=== PATIENT | female | born 1985 | race Caucasian/White ===

== ENCOUNTER 2021-08-02 14:39 | Observation (INO) | payer BC ==
[2021-08-02] MEDS ORDERED: SODIUM CHLORIDE 0.9% 1,000 ML IV STA (15:21)
[2021-08-02] MEDS ORDERED: MORPHINE SULFATE 4 MG/ML SYRINGE IV STA ×2 (15:21→17:53)
[2021-08-02 15:24] LABS: Appearance,Urine Cloudy (Clear); Bilirubin,Urine Negative (Negative); Blood,Urine Negative (Negative); Color,Urine Yellow; Glucose,Urine (UA) Negative (Negative); Ketones,Urine Negative (Negative); Leukocyte Esterase,Urine Large (Negative); Mucus,Urine Rare /hpf; Nitrite,Urine Negative (Negative); PH, Urine 7.5 (5.0-8.0); Protein,Urine Negative (Negative); RBC,Urine <1 /hpf (0-5); Specific Gravity,Urine 1.014 (1.001-1.035); Squamous Epithelial Cell,Urine 7 /hpf (0-4); Urobilinogen,Urine <2.0 mg/dL (<2.0); WBC,Urine 4 /hpf (0-5)
--- NOTE | 2021-08-02 15:27 | ED ---
General Adult HPI - General Chief complaint: Abdominal Pain Stated complaint: Abd pain Time Seen by Provider: 08/02/21 15:08 Source: patient Mode of arrival: ambulatory Limitations: no limitations - History of Present Illness Initial comments: Dictation was produced using Scali dictation software. please excuse any grammatical, word or spelling errors. Chief Complaint: 36 year old female presents with 2 hours of abdominal pain History of Present Illness: Patient 36-year-old female she has no past medical history. She has history of . At 1:30 patient began having severe constant right upper quadrant abdominal pain. Patient denies any vomiting. She feels slightly nauseated. When 2 hours prior the onset of pain patient states that she had's with hot sauce. Patient states she woke up feeling well. No diarrhea. Denies any constitutional symptoms. Patient is diagnosed with gallstones in the past. The ROS documented in this emergency department record has been reviewed and confirmed by me. Those systems with pertinent positive or negative responses have been documented in the HPI. All other systems are other negative and/or noncontributory. PHYSICAL EXAM: General Impression: Alert and oriented x3, not in acute distress HEENT: Normocephalic atraumatic, extra-ocular movements intact, pupils equal and reactive to light bilaterally, mucous membranes moist. Cardiovascular: Heart regular rate and rhythm Chest: Able to complete full sentences, no retractions, no tachypnea Abdomen: abdomen soft, palpatory tenderness in the epigastric and right upper quadrant area, negative Call sign, non-distended, no organomegaly Musculoskeletal: Pulses present and equal in all extremities, no peripheral edema Motor: no focal deficits noted Neurological: CN II-XII grossly intact, no focal motor or sensory deficits noted Skin: Intact with no visualized rashes Psych: Normal affect and mood ED course: 36-year-old female presents to the emergency department for right upper quadrant abdominal pain. Vital Signs upon arrival are within acceptable limits. Mild leukocytosis of 14.7, there is slight microcytosis, platelets of 490. Metabolic panel shows bicarb of 18 with a gap of 14. Glucose is 63. AST is 184. Alk phos is negative. Lipase is normal. Urinalysis negative. Patient is not . Ultrasound of the right upper quadrant shows no findings to suggest acute cholecystitis. Normal gallbladder wall with no pericholecystic fluid. Patient had a positive sonographic Call sign. There is gallbladder full of gallstones. Patient reevaluated to bedside at 6:35 PM she still in significant pain. She continues to deny any constitutional symptoms. Disposition options were discussed. At this point there is some concern for acute infected gallbladder given that she does have elevated acute phase reactants, mild leukocytosis, hyperglycemia and severe persistent right upper quadrant abdominal pain. Case discussed with Dr. Duke who is willing to accept patients care. Patient started on antibiotics. Patient will be admitted. Dr. Duke anticipates laparoscopic cholecystectomy tomorrow. - Related Data Home Medications Medication Instructions Recorded Confirmed Levothyroxine Sodium [Synthroid] 150 mcg PO DAILY 08/02/21 08/02/21 Sertraline [Zoloft] 100 mg PO HS 08/02/21 08/02/21 Allergies Allergy/AdvReac Type Severity Reaction Status Date / Time No Known Allergies Allergy Verified 08/02/21 16:48 Review of Systems ROS Statement: Those systems with pertinent positive or pertinent negative responses have been documented in the HPI. ROS Other: All systems not noted in ROS Statement are negative. Past Medical History Past Medical History: No Reported History History of Any Multi-Drug Resistant Organisms: None Reported Past Surgical History: Section Past Psychological History: No Psychological Hx Reported Smoking Status: Never smoker Past Alcohol Use History: None Reported Past Drug Use History: None Reported General Exam Limitations: no limitations Course Vital Signs 08/02/21 08/02/21 14:42 17:36 Temperature 97.8 F 98.7 F Pulse Rate 95 86 Respiratory 18 18 Rate Blood Pressure 130/82 116/82 O2 Sat by Pulse 100 100 Oximetry Medical Decision Making - Lab Data Result diagrams: 08/02/21 16:36 08/02/21 16:36 Lab Results 08/02/21 08/02/21 08/02/21 Range/Units 14:50 14:52 16:36 WBC 14.7 H (3.8-10.6) k/uL RBC 4.94 (3.80-5.40) m/uL Hgb 11.7 (11.4-16.0) gm/dL Hct 37.4 (34.0-46.0) % MCV 75.7 L (80.0-100.0) fL MCH 23.6 L (25.0-35.0) pg MCHC 31.2 (31.0-37.0) g/dL RDW 14.3 (11.5-15.5) % Plt Count 490 H (150-450) k/uL MPV 11.0 Neutrophils % 86 % Lymphocytes % 7 % Monocytes % 5 % Eosinophils % 1 % Basophils % 0 % Neutrophils # 12.7 H (1.3-7.7) k/uL Lymphocytes # 1.0 (1.0-4.8) k/uL Monocytes # 0.7 (0-1.0) k/uL Eosinophils # 0.1 (0-0.7) k/uL Basophils # 0.0 (0-0.2) k/uL Hypochromasia Marked Microcytosis Slight Sodium (137-145) mmol/L Potassium (3.5-5.1) mmol/L Chloride (98-107) mmol/L Carbon Dioxide (22-30) mmol/L Anion Gap mmol/L BUN (7-17) mg/dL Creatinine (0.52-1.04) mg/dL Est GFR (CKD-EPI)AfAm (>60 ml/min/1.73 sqM) Est GFR (CKD-EPI)NonAf (>60 ml/min/1.73 sqM) Glucose (74-99) mg/dL POC Glucose (mg/dL) (75-99) mg/dL POC Glu [place]er ID Calcium (8.4-10.2) mg/dL Total Bilirubin (0.2-1.3) mg/dL Conjugated Bilirubin (0.0-0.3) mg/dL Unconjugated Bilirubin (0.0-1.1) mg/dL Delta Bilirubin (0.0-0.2) mg/dL AST (14-36) U/L ALT (4-34) U/L Alkaline Phosphatase (38-126) U/L Total Protein (6.3-8.2) g/dL Albumin (3.5-5.0) g/dL Lipase (23-300) U/L HCG, Quant mIU/mL Urine Color Yellow Urine Appearance Cloudy H (Clear) Urine pH 7.5 (5.0-8.0) Ur Specific [place] 1.014 (1.001-1.035) Urine Protein Negative (Negative) Urine Glucose (UA) Negative (Negative) Urine Ketones Negative (Negative) Urine Blood Negative (Negative) Urine Nitrite Negative (Negative) Urine Bilirubin Negative (Negative) Urine Urobilinogen <2.0 (<2.0) mg/dL Ur Leukocyte Esterase Large H (Negative) Urine RBC <1 (0-5) /hpf Urine WBC 4 (0-5) /hpf Ur Squamous Epith Cells 7 H (0-4) /hpf Urine Mucus Rare H (None) /hpf Urine HCG, Qual Not Detected (Not Detectd) 08/02/21 08/02/21 Range/Units 16:36 18:30 WBC (3.8-10.6) k/uL RBC (3.80-5.40) m/uL Hgb (11.4-16.0) gm/dL Hct (34.0-46.0) % MCV (80.0-100.0) fL MCH (25.0-35.0) pg MCHC (31.0-37.0) g/dL RDW (11.5-15.5) % Plt Count (150-450) k/uL MPV Neutrophils % % Lymphocytes % % Monocytes % % Eosinophils % % Basophils % % Neutrophils # (1.3-7.7) k/uL Lymphocytes # (1.0-4.8) k/uL Monocytes # (0-1.0) k/uL Eosinophils # (0-0.7) k/uL Basophils # (0-0.2) k/uL Hypochromasia Microcytosis Sodium 140 (137-145) mmol/L Potassium 4.8 (3.5-5.1) mmol/L Chloride 108 H (98-107) mmol/L Carbon Dioxide 18 L (22-30) mmol/L Anion Gap 14 mmol/L BUN 9 (7-17) mg/dL Creatinine 0.60 (0.52-1.04) mg/dL Est GFR (CKD-EPI)AfAm >90 (>60 ml/min/1.73 sqM) Est GFR (CKD-EPI)NonAf >90 (>60 ml/min/1.73 sqM) Glucose 63 L (74-99) mg/dL POC Glucose (mg/dL) 141 H (75-99) mg/dL POC Glu [place] ID Sj Dean Calcium 9.1 (8.4-10.2) mg/dL Total Bilirubin 0.8 (0.2-1.3) mg/dL Conjugated Bilirubin 0.0 (0.0-0.3) mg/dL Unconjugated Bilirubin 0.3 (0.0-1.1) mg/dL Delta Bilirubin 0.5 H (0.0-0.2) mg/dL AST 184 H (14-36) U/L ALT 31 (4-34) U/L Alkaline Phosphatase 117 (38-126) U/L Total Protein 8.8 H (6.3-8.2) g/dL Albumin 4.8 (3.5-5.0) g/dL Lipase 111 (23-300) U/L HCG, Quant <2.4 mIU/mL Urine Color Urine Appearance (Clear) Urine pH (5.0-8.0) Ur Specific [place] (1.001-1.035) Urine Protein (Negative) Urine Glucose (UA) (Negative) Urine Ketones (Negative) Urine Blood (Negative) Urine Nitrite (Negative) Urine Bilirubin (Negative) Urine Urobilinogen (<2.0) mg/dL Ur Leukocyte Esterase (Negative) Urine RBC (0-5) /hpf Urine WBC (0-5) /hpf Ur Squamous Epith Cells (0-4) /hpf Urine Mucus (None) /hpf Urine HCG, Qual (Not Detectd) Disposition Clinical Impression: Acute cholecystitis Disposition: ADMITTED IP TO THIS HOSP Condition: Fair Referrals: Kraig Zhu DO [Primary Care Provider] - 1-2 days
--- NOTE | 2021-08-02 16:39 | US ---
EXAMINATION TYPE: US abdomen limited DATE OF EXAM: 08/02/2021 COMPARISON: NONE CLINICAL HISTORY: ruq pain. RUQ pain EXAM MEASUREMENTS: Liver Length: 20.0 cm Gallbladder Wall: 0.3 cm CBD: 0.5 cm Right Kidney: 10.2 x 4.5 x 4.3 cm Pancreas: wnl, tail obscured by overlying bowel gas Liver: Enlarged, heterogeneous Gallbladder: lumen almost entirely filled with gallstones, wall not thickened Evidence for sonographic Call's sign: Yes CBD: wnl Right Kidney: wnl IMPRESSION: Cholelithiasis with positive sonographic Call's sign yet without significant gallbladder wall thick ening or significant pericholecystic fluid. Please correlate clinically to rule out mild acute cholec ystitis. Further HIDA scan assessment can be considered if clinically required. Slightly heterogeneou s enlarged liver.
[2021-08-02 16:52] LABS: Basophils % (A) 0 %; Eosinophils # (A) 0.1 k/uL (0-0.7); Eosinophils % (A) 1 %; HCT 37.4 % (34.0-46.0); HGB 11.7 gm/dL (11.4-16.0); Hypochromasia Marked; Lymphocytes % (A) 7 %; MCH 23.6 pg (25.0-35.0); MCHC 31.2 g/dL (31.0-37.0); MCV 75.7 fL (80.0-100.0); Microcytosis Slight; Monocytes # (A) 0.7 k/uL (0-1.0); Monocytes % (A) 5 %; Neutrophils # (A) 12.7 k/uL (1.3-7.7); Neutrophils % (A) 86 %; Platelet Count 490 k/uL (150-450); RBC 4.94 m/uL (3.80-5.40); RDW 14.3 % (11.5-15.5); WBC 14.7 k/uL (3.8-10.6)
[2021-08-02 16:54] LABS: ALT 31 U/L (4-34); AST 184 U/L (14-36); African American GFR (CKD) >90 (>60 ml/min/1.73 sqM); Albumin 4.8 g/dL (3.5-5.0); Alkaline Phosphatase 117 U/L (38-126); Anion Gap 14 mmol/L; Bilirubin, Delta 0.5 mg/dL (0.0-0.2); Bilirubin,Unconjugated 0.3 mg/dL (0.0-1.1); Blood Urea Nitrogen 9 mg/dL (7-17); Calcium 9.1 mg/dL (8.4-10.2); Carbon Dioxide 18 mmol/L (22-30); Chloride 108 mmol/L (98-107); Glucose 63 mg/dL (74-99); Lipase 111 U/L (23-300); Non-African American GFR(CKD) >90 (>60 ml/min/1.73 sqM); Potassium 4.8 mmol/L (3.5-5.1); Sodium 140 mmol/L (137-145); Total Bilirubin 0.8 mg/dL (0.2-1.3); Total Protein 8.8 g/dL (6.3-8.2)
[2021-08-02 17:10] LABS: HCG,Quantitative Serum <2.4 mIU/mL
[2021-08-02 18:32] LABS: Glucose,Whole Blood 141 mg/dL (75-99)
[2021-08-02] MEDS ORDERED: PIPERACILLIN-TAZOBACTAM 3.375 GM in SODIUM CHLORIDE 0.9% 100 ML IVPB STA (18:42)
[2021-08-02] MEDS ORDERED: ACETAMINOPHEN TAB 325 MG TAB PO PRN (18:42)
[2021-08-02] MEDS ORDERED: NALOXONE 0.4 MG/ML 1 ML VIAL IV PRN (18:42)
[2021-08-02] MEDS: SODIUM CHLORIDE 0.9% 1,000 ML IV SCH (19:33)
--- NOTE | 2021-08-02 19:57 | P.GSHP ---
History of Present Illness H&P Date: 08/02/21 Chief Complaint: Right upper quadrant pain Is a 36-year-old female who presents to the ER with right upper quadrant pain. He states he has a history of quadrant pain. Patient also perform shows evidence of cholelithiasis. Past Medical History Past Medical History: No Reported History History of Any Multi-Drug Resistant Organisms: None Reported Past Surgical History: Section Past Psychological History: No Psychological Hx Reported Smoking Status: Never smoker Past Alcohol Use History: None Reported Past Drug Use History: None Reported Medications and Allergies Home Medications Medication Instructions Recorded Confirmed Type Levothyroxine Sodium [Synthroid] 150 mcg PO DAILY 08/02/21 08/02/21 History Sertraline [Zoloft] 100 mg PO HS 08/02/21 08/02/21 History Allergies Allergy/AdvReac Type Severity Reaction Status Date / Time No Known Allergies Allergy Verified 08/02/21 16:48 Surgical - Exam Vital Signs Temp Pulse Resp BP Pulse Ox 97.8 F 95 18 130/82 100 08/02/21 14:42 08/02/21 14:42 08/02/21 14:42 08/02/21 14:42 08/02/21 14:42 - General well developed, well nourished, no distress - Eyes PERRL - ENT normal pinna - Neck no masses - Respiratory normal expansion - Cardiovascular Rhythm: regular - Abdomen Marked tenderness right upper quadrant Abdomen: soft Results - Labs 08/02/21 16:36 08/02/21 16:36 Abnormal Lab Results - Last 24 Hours (Table) 08/02/21 08/02/21 08/02/21 Range/Units 14:52 16:36 16:36 WBC 14.7 H (3.8-10.6) k/uL MCV 75.7 L (80.0-100.0) fL MCH 23.6 L (25.0-35.0) pg Plt Count 490 H (150-450) k/uL Neutrophils # 12.7 H (1.3-7.7) k/uL Chloride 108 H (98-107) mmol/L Carbon Dioxide 18 L (22-30) mmol/L Glucose 63 L (74-99) mg/dL POC Glucose (mg/dL) (75-99) mg/dL Delta Bilirubin 0.5 H (0.0-0.2) mg/dL AST 184 H (14-36) U/L Total Protein 8.8 H (6.3-8.2) g/dL Urine Appearance Cloudy H (Clear) Ur Leukocyte Esterase Large H (Negative) Ur Squamous Epith Cells 7 H (0-4) /hpf Urine Mucus Rare H (None) /hpf 08/02/21 Range/Units 18:30 WBC (3.8-10.6) k/uL MCV (80.0-100.0) fL MCH (25.0-35.0) pg Plt Count (150-450) k/uL Neutrophils # (1.3-7.7) k/uL Chloride (98-107) mmol/L Carbon Dioxide (22-30) mmol/L Glucose (74-99) mg/dL POC Glucose (mg/dL) 141 H (75-99) mg/dL Delta Bilirubin (0.0-0.2) mg/dL AST (14-36) U/L Total Protein (6.3-8.2) g/dL Urine Appearance (Clear) Ur Leukocyte Esterase (Negative) Ur Squamous Epith Cells (0-4) /hpf Urine Mucus (None) /hpf Diabetes panel 08/02/21 Range/Units 16:36 Sodium 140 (137-145) mmol/L Potassium 4.8 (3.5-5.1) mmol/L Chloride 108 H (98-107) mmol/L Carbon Dioxide 18 L (22-30) mmol/L BUN 9 (7-17) mg/dL Creatinine 0.60 (0.52-1.04) mg/dL Glucose 63 L (74-99) mg/dL Calcium 9.1 (8.4-10.2) mg/dL AST 184 H (14-36) U/L ALT 31 (4-34) U/L Alkaline Phosphatase 117 (38-126) U/L Total Protein 8.8 H (6.3-8.2) g/dL Albumin 4.8 (3.5-5.0) g/dL Calcium panel 08/02/21 Range/Units 16:36 Calcium 9.1 (8.4-10.2) mg/dL Albumin 4.8 (3.5-5.0) g/dL Pituitary panel 08/02/21 Range/Units 16:36 Sodium 140 (137-145) mmol/L Potassium 4.8 (3.5-5.1) mmol/L Chloride 108 H (98-107) mmol/L Carbon Dioxide 18 L (22-30) mmol/L BUN 9 (7-17) mg/dL Creatinine 0.60 (0.52-1.04) mg/dL Glucose 63 L (74-99) mg/dL Calcium 9.1 (8.4-10.2) mg/dL Adrenal panel 08/02/21 Range/Units 16:36 Sodium 140 (137-145) mmol/L Potassium 4.8 (3.5-5.1) mmol/L Chloride 108 H (98-107) mmol/L Carbon Dioxide 18 L (22-30) mmol/L BUN 9 (7-17) mg/dL Creatinine 0.60 (0.52-1.04) mg/dL Glucose 63 L (74-99) mg/dL Calcium 9.1 (8.4-10.2) mg/dL Total Bilirubin 0.8 (0.2-1.3) mg/dL AST 184 H (14-36) U/L ALT 31 (4-34) U/L Alkaline Phosphatase 117 (38-126) U/L Total Protein 8.8 H (6.3-8.2) g/dL Albumin 4.8 (3.5-5.0) g/dL Assessment and Plan Assessment: Acute cholecystitis. Patient will undergo laparoscopic cholecystectomy in the a.m.
[2021-08-02] MEDS: MORPHINE SULFATE 4 MG/ML SYRINGE IV PRN (22:16)
[2021-08-03] MEDS: SODIUM CHLORIDE 0.9% 1,000 ML IV SCH ×3 (05:39→18:11)
[2021-08-03] MEDS: MORPHINE SULFATE 4 MG/ML SYRINGE IV PRN ×2 (07:33→20:36)
[2021-08-03 10:06] VITALS: BMI 31.6
[2021-08-03] MEDS ORDERED: IV FLUID CONTINUATION 650 ML IV ONE (12:50)
[2021-08-03] MEDS ORDERED: SCOPOLAMINE 1.5MG/72HR PATCH TRANSDERM ONE (13:02)
[2021-08-03] MEDS ORDERED: DEXAMETHASONE SOD PHOSPHATE 4 MG/ML 1 ML VIAL IV ONE (13:02)
[2021-08-03] MEDS ORDERED: ONDANSETRON 4 MG/2 ML VIAL IVP ONE (13:03)
[2021-08-03] MEDS ORDERED: ONDANSETRON 4 MG/2 ML VIAL ONE (13:04)
[2021-08-03] MEDS ORDERED: KETOROLAC 15 MG/ML 1 ML VIAL ONE (13:16)
[2021-08-03] MEDS ORDERED: KETOROLAC 15 MG/ML 1 ML VIAL IVP ONE (13:20)
[2021-08-03] MEDS ORDERED: HEPARIN SODIUM,PORCINE/PF 5,000 UNIT/0.5 ML SYRINGE SQ ONE (13:33)
[2021-08-03] MEDS ORDERED: NEOSTIGMINE 1 MG/ML 10 ML VIAL ONE (14:03)
[2021-08-03] MEDS ORDERED: LIDOCAINE 1% INJ 10MG/ML (20 ML MDV) ONE (14:03)
[2021-08-03] MEDS ORDERED: GLYCOPYRROLATE 0.2 MG/ML 2 ML VIAL ONE (14:03)
[2021-08-03] MEDS ORDERED: SUCCINYLCHOLINE CHLORIDE 100 MG/5 ML SYR IV ONE (14:03)
[2021-08-03] MEDS ORDERED: PROPOFOL 10 MG/ML 20 ML VIAL IV ONE (14:03)
[2021-08-03] MEDS ORDERED: HYDROmorphone (PF) 1 MG/ML ONE (14:03)
[2021-08-03] MEDS ORDERED: MIDAZOLAM 2 MG/2 ML VIAL ONE ×2 (14:03)
[2021-08-03] MEDS ORDERED: ROCURONIUM 10 MG/ML (5 ML VIAL) IV ONE (14:03)
[2021-08-03] MEDS ORDERED: BUPIVACAIN-EPI 0.25%-1:200,000 30 ML VIAL SQ ONE (14:09)
[2021-08-03] MEDS ORDERED: LACTATED RINGERS 1,000 ML IV ONE (14:28)
[2021-08-03] MEDS ORDERED: HYDROmorphone 1 MG/ML 1 ML SYRINGE IVP PRN (14:46)
[2021-08-03] MEDS ORDERED: ONDANSETRON 4 MG TAB PO PRN (14:46)
--- NOTE | 2021-08-03 14:46 | P.OP ---
Date of Procedure: 08/03/21 Preoperative Diagnosis: Cholecystitis Postoperative Diagnosis: Cholecystitis Cholelithiasis Procedure(s) Performed: Laparoscopic cholecystectomy Anesthesia: NGUYEN Surgeon: Kiran Duke Pathology: other (Gallbladder) Condition: stable Disposition: PACU Operative Findings: Gallbladder full of very small gallstones Description of Procedure: The patient was placed on the operating table. The patient received a general endotracheal tube anesthesia. The patients abdomen was prepped and draped in the usual sterile fashion. Through an infraumbilical stab incision, the fascia of the anterior abdominal wall was grasped with a pair of Kochers and then the Veress needle was placed in the peritoneal cavity. Position of the Veress needle was confirmed with positive drop test. The abdomen was then insufflated. After adequate insufflation, the 10 mm trocar was placed in the peritoneal cavity. Following this the laparoscope was placed in the peritoneal cavity. The patient was placed in the head-up, right side up position and then a 5 mm trocar was placed in the right lateral and right subcostal position under direct visualization. A 8 mm trocar was placed in the epigastric position. The gallbladder was grasped in the fundus and infundibulum. Traction on the gallbladder was placed in the lateral and the cephalad positions. The triangle of Calot was visualized.. The cystic duct was bluntly dissected until the union of the cystic duct and common bile duct was seen. A critical view of safety was achieved. The cystic duct was then divided and sealed with the Harmonic scissors. A PDS Endoloop was then placed throughout the cystic duct stump. The cystic artery divided and sealed with the Harmonic scissors. The gallbladder was then removed from the liver bed using Harmonic scissors. The gallbladder was then extracted through the epigastric port site. Operative field was checked for any bleeding spots and Harmonic scissors was used to coagulate the liver bed. The abdomen was irrigated. The trocars were removed. The skin was closed using interrupted 3-0 Vicryl suture. Dermabond dressing were applied. The patient tolerated the procedure well.
[2021-08-03] MEDS ORDERED: HYDROmorphone 0.5 MG/0.5 ML SYRINGE IVP ONE (15:22)
[2021-08-04] MEDS: MORPHINE SULFATE 4 MG/ML SYRINGE IV PRN ×4 (01:04→19:14)
[2021-08-04] MEDS: SODIUM CHLORIDE 0.9% 1,000 ML IV SCH ×3 (01:38→18:55)
[2021-08-04] MEDS: HYDROcodone/APAP 7.5-325MG 1 EACH TAB PO PRN ×2 (08:25→14:40)
[2021-08-04 08:47] LABS: Basophils % (A) 1 %; Eosinophils # (A) 0.2 k/uL (0-0.7); Eosinophils % (A) 2 %; HCT 37.3 % (34.0-46.0); HGB 10.8 gm/dL (11.4-16.0); Hypochromasia Marked; Lymphocytes # (A) 1.6 k/uL (1.0-4.8); Lymphocytes % (A) 23 %; MCH 23.2 pg (25.0-35.0); MCHC 28.9 g/dL (31.0-37.0); MCV 80.3 fL (80.0-100.0); Mean Platelet Volume 7.8; Monocytes # (A) 0.4 k/uL (0-1.0); Monocytes % (A) 6 %; Neutrophils # (A) 4.6 k/uL (1.3-7.7); Neutrophils % (A) 66 %; Platelet Count 452 k/uL (150-450); RBC 4.64 m/uL (3.80-5.40); RDW 14.4 % (11.5-15.5); WBC 6.9 k/uL (3.8-10.6)
[2021-08-04 08:52] LABS: ALT 140 U/L (4-34); AST 130 U/L (14-36); African American GFR (CKD) >90 (>60 ml/min/1.73 sqM); Albumin 3.5 g/dL (3.5-5.0); Albumin/Globulin Ratio 1.1; Alkaline Phosphatase 179 U/L (38-126); Anion Gap 6 mmol/L; Blood Urea Nitrogen 4 mg/dL (7-17); Calcium 8.8 mg/dL (8.4-10.2); Carbon Dioxide 19 mmol/L (22-30); Chloride 112 mmol/L (98-107); Globulin 3.3 g/dL; Glucose 90 mg/dL (74-99); Non-African American GFR(CKD) >90 (>60 ml/min/1.73 sqM); Potassium 4.2 mmol/L (3.5-5.1); Sodium 137 mmol/L (137-145); Total Bilirubin 0.4 mg/dL (0.2-1.3); Total Protein 6.8 g/dL (6.3-8.2)
--- NOTE | 2021-08-04 13:39 | P.PN ---
Subjective Progress Note Date: 08/04/21 CHIEF COMPLAINT: Cholecystitis HISTORY OF PRESENT ILLNESS: Patient is status post laparoscopic cholecystectomy. Postop day #1. Patient reports that her pain is not controlled. She denies any nausea or vomiting. In his been able to only eat a few bites of food. Denies any flatus or bowel movement. She reports she's been up and ambulating in her room. Afebrile. WBC 14.7 down to 6.9 hemoglobin 10.8 platelets 452 sodium 137 creatinine 0.57 total bilirubin 0.4 AST down from 184 to 130 ALT 31 up to 140 alk phos up to 179 Patient seen and examined with Dr. Duke PHYSICAL EXAM: VITAL SIGNS: Reviewed. GENERAL: Well-developed in no acute distress. HEENT: No sclera icterus. Extraocular movements grossly intact. Moist buccal mucosa. Head is atraumatic, normocephalic. ABDOMEN: Soft. Nondistended. Tenderness with palpation upper abdomen incision site. Incision sites minimal bruising noted. Otherwise clean dry and intact NEUROLOGIC: Alert and oriented. Cranial nerves II through XII grossly intact. ASSESSMENT: 1. Cholecystitis and cholelithiasis status post laparoscopic cholecystectomy 2. Elevated LFTs PLAN: -Continue pain management -Encourage patient to ambulate -Repeat labs in a.m. -Resume home meds -Anticipate discharge tomorrow -GI prophylaxis Pepcid and DVT prophylaxis subcu heparin Physician Irrigation Pump Installer note has been reviewed by physician. Signing provider agrees with the documented findings, assessment, and plan of care. Objective - Vital Signs Vital signs: Vital Signs Temp 98.1 F 08/04/21 07:00 Pulse 82 08/04/21 07:00 Resp 16 08/04/21 07:00 BP 104/66 08/04/21 07:00 Pulse Ox 90 L 08/04/21 07:00 Intake & Output 08/03/21 08/04/21 08/04/21 18:59 06:59 18:59 Intake Total 1518 236 Output Total 5 Balance 1513 236 Weight 86.183 kg Intake: IV 1400 Oral 118 236 Output: Estimated Blood Loss 5 Other: # Voids 3 2 - Labs CBC & Chem 7: 08/04/21 08:19 08/04/21 08:19 Labs: Abnormal Lab Results - Last 24 Hours (Table) 03/24/22 03/24/22 Range/Units 08:19 08:19 Hgb 10.8 L (11.4-16.0) gm/dL MCH 23.2 L (25.0-35.0) pg MCHC 28.9 L (31.0-37.0) g/dL Plt Count 452 H (150-450) k/uL Chloride 112 H (98-107) mmol/L Carbon Dioxide 19 L (22-30) mmol/L BUN 4 L (7-17) mg/dL AST 130 H (14-36) U/L ALT 140 H (4-34) U/L Alkaline Phosphatase 179 H (38-126) U/L
[2021-08-04] MEDS: LEVOTHYROXINE 75 MCG TAB PO SCH (14:37)
[2021-08-04] MEDS: HEPARIN SODIUM,PORCINE/PF 5,000 UNIT/0.5 ML SYRINGE SQ SCH (19:15)
[2021-08-04] MEDS: FAMOTIDINE 20 MG TAB PO SCH (19:15)
[2021-08-04] MEDS ORDERED: SERTRALINE 100 MG TAB PO SCH (21:00)
[2021-08-05] MEDS: SODIUM CHLORIDE 0.9% 1,000 ML IV SCH ×2 (00:42→08:53)
[2021-08-05] MEDS: MORPHINE SULFATE 4 MG/ML SYRINGE IV PRN ×2 (00:46→05:51)
[2021-08-05] MEDS: LEVOTHYROXINE 75 MCG TAB PO SCH (05:51)
[2021-08-05 07:31] VITALS: BP 136/80; PULSE 80; RESP 20; TEMP 97.7
[2021-08-05] MEDS: FAMOTIDINE 20 MG TAB PO SCH (08:53)
[2021-08-05] MEDS: HEPARIN SODIUM,PORCINE/PF 5,000 UNIT/0.5 ML SYRINGE SQ SCH (08:53)
[2021-08-05] MEDS: HYDROcodone/APAP 7.5-325MG 1 EACH TAB PO PRN (09:01)
[2021-08-05 10:57] LABS: ALT 104 U/L (8-44); AST 48 U/L (13-35); African American GFR (CKD) 133.7 (60.0-200.0); Albumin 3.8 g/dL (3.8-4.9); Albumin/Globulin Ratio 1.58 (1.60-3.17); Alkaline Phosphatase 167 U/L (41-126); Blood Urea Nitrogen 3.9 mg/dL (9.0-27.0); Calcium 9.1 mg/dL (8.7-10.3); Carbon Dioxide 23.6 mmol/L (20.0-27.5); Chloride 104 mmol/L (96-109); Globulin 2.4 g/dL (1.6-3.3); Glucose 90 mg/dL (70-110); Non-African American GFR(CKD) 115.3 (60.0-200.0); Potassium 4.4 mmol/L (3.5-5.5); Sodium 140 mmol/L (135-145); Total Bilirubin <0.15 mg/dL (0.30-1.20); Total Protein 6.3 g/dL (6.2-8.2)
[2021-08-05 11:22] LABS: Basophils # (A) 0.04 X 10*3/uL (0.00-0.10); Basophils % (A) 0.7 %; Eosinophils # (A) 0.26 X 10*3/uL (0.04-0.35); Eosinophils % (A) 4.6 %; HCT 33.4 % (37.2-46.3); HGB 9.6 g/dL (12.0-15.0); Immature Grans, Automated 0.4 %; Lymphocytes # (A) 1.62 X 10*3/uL (0.90-5.00); Lymphocytes % (A) 28.4 %; MCH 22.4 pg (27.0-32.0); MCHC 28.7 g/dL (32.0-37.0); Mean Platelet Volume 13.9 fL (9.5-12.2); Monocytes % (A) 10.5 %; NRBC Per 100 WBC 0 /100 WBCS (0.0-0.0); Neutrophils # (A) 3.17 X 10*3/uL (1.80-7.70); Neutrophils % (A) 55.4 %; Platelet Count 405 X 10*3/uL (140-440); RBC 4.28 X 10*6/uL (4.10-5.20); RDW 14.9 % (11.5-14.5); WBC 5.71 X 10*3/uL (4.50-10.00)
--- NOTE | 2021-08-05 11:34 | P.DS ---
Providers Date of admission: 08/02/21 18:42 Expected date of discharge: 08/05/21 Attending physician: Kiran Duke Primary care physician: Kraig Zhu Hospital Course: Discharge diagnosis 1. Cholecystitis and cholelithiasis status post laparoscopic cholecystectomy 2. Elevated LFTs trending down Hospital course This is a 36-year-old female presented with right upper quadrant pain. Ultrasound showed evidence of cholelithiasis and positive Call sign. Patient status post laparoscopic cholecystectomy. Her pain is controlled. She is tolerating diet. She is up and ambulating. She is having flatus. Incision sites clean dry and intact. LFTs are trending downwards. Patient is stable for discharge. Please refer to chart for any further details. Physician Quality Control Operator note has been reviewed by physician. Signing provider agrees with the documented findings, assessment, and plan of care. Patient Condition at Discharge: Stable Plan - Discharge Summary New Discharge Prescriptions: New Docusate [Colace] 100 mg PO BID #30 capsule HYDROcodone/APAP 5-325MG [[place] 5-325] 1 tab PO Q6HR PRN 3 Days #12 tab PRN Reason: Pain Continue Sertraline [Zoloft] 100 mg PO HS Levothyroxine Sodium [Synthroid] 150 mcg PO DAILY Discharge Medication List Levothyroxine Sodium [Synthroid] 150 mcg PO DAILY 08/02/21 [History] Sertraline [Zoloft] 100 mg PO HS 08/02/21 [History] Docusate [Colace] 100 mg PO BID #30 capsule 08/05/21 [Rx] HYDROcodone/APAP 5-325MG [[place] 5-325] 1 tab PO Q6HR PRN 3 Days #12 tab 08/05/21 [Rx] Follow up Appointment(s)/Referral(s): Kraig Zhu DO [Primary Care Provider] - 1-2 days Kiran Duke MD [STAFF PHYSICIAN] - 1 Week Activity/Diet/Wound Care/Special Instructions: No driving while taking [place] No lifting over 10 pounds You may shower. No soaking or tub baths for 2 weeks Very light activity until you are reevaluated at your follow up appointment with your surgeon Discharge Disposition: HOME SELF-CARE
== END 2021-08-05 13:18 | disposition home or self-care (01) ==
LOC: EC 14:39 → 6NMEDSUR 18:42
PROVIDERS: ADMIT Surgery; ATTEND Surgery
DX: K80.12 Calculus of gallbladder with acute and chronic cholecystitis without obstruction (principal); E03.9 Hypothyroidism, unspecified; Z79.890 Hormone replacement therapy; Z79.899 Other long term (current) drug therapy; Z98.891 History of uterine scar from previous surgery; Z98.82 Breast implant status
CPT/HCPCS: 47562; 96376 ×2; 96361; 96374; 99285; 36415; 93005; 81025 ×2; 88304; 80053 ×3; 82248; 83690; 85025 ×3; 81001; 84702; 76705; G0378 ×4; J2543; J2250; J2270 ×4; J1100; J2710; J0690; J2405; J2001; J1170 ×2; J1885; J0330; J2704; J1644 ×3